=== PATIENT | female | born 1950 | race Caucasian/White ===

== ENCOUNTER 2017-04-09 07:05 | Emergency (ER) | payer MEDICARE ==
[2017-04-09 07:16] VITALS: BP 170/79
--- NOTE | 2017-04-09 07:42 | UC ---
Skin Complaint HPI - HPI Summary HPI Summary: FOUND A TICK RIGHT MEDIAL THIGH THIS MORNING. TRIED TO REMOVE IT WITH TWEEZERS BUT PART OF IT BROKE OFF. NOT SURE HOW LONG IT WAS ATTACHED. GOES INTO THE [place] DAILY. - History of Current Complaint Chief Complaint: [facility]CS[facility] Time Seen by Provider: 04/09/17 07:11 Stated Complaint: TICK BITE Hx Obtained From: Patient Timing: Constant Onset Severity: Mild Current Severity: Mild Pain Intensity: 0 Pain Scale Used: 0-10 Numeric Location: Discrete - RIGHT MEDIAL THIGH Character: Redness Aggravating: Nothing Alleviating: Nothing Associated Signs & Symptoms: Positive: Negative Related History: Insect Bite/Sting - Allergy/Home Medications Allergies/Adverse Reactions: Allergies Allergy/AdvReac Type Severity Reaction Status Date / Time No Known Allergies Allergy Verified 04/09/17 07:16 Review of Systems Constitutional: Negative Skin: Other - TICK BITE Respiratory: Negative Cardiovascular: Negative Gastrointestinal: Negative All Other Systems Reviewed And Are Negative: Yes PMH/Surg Hx/FS Hx/Imm Hx Endocrine History Of: Denies: Diabetes, Thyroid Disease Cardiovascular History Of: Denies: Cardiac Disorders, Hypertension, Pacemaker/ICD Respiratory History Of: Denies: COPD, Asthma GI/ History Of: Denies: Ulcer, Renal Disease Neurological History Of: Reports: Migraine Cancer History Of: Denies: Breast Cancer - Surgical History Surgical History: None - Family History Known Family History: Negative: Hypertension - Social History Alcohol Use: Rare Substance Use Type: None Smoking Status (MU): Never Smoked Tobacco Physical Exam Triage Information Reviewed: Yes Appearance: Well-Appearing, No Pain Distress, Well-Nourished Vital Signs: Initial Vital Signs Temp 97.8 F 04/09/17 07:13 Pulse 89 04/09/17 07:13 Resp 16 04/09/17 07:13 BP 170/79 04/09/17 07:13 Pulse Ox 99 04/09/17 07:13 Vital Signs Reviewed: Yes Eyes: Positive: Conjunctiva Clear ENT: Positive: Hearing grossly normal Neck: Positive: Supple Respiratory: Positive: No respiratory distress, No accessory muscle use Cardiovascular: Positive: Pulses Normal Abdomen Description: Positive: Soft Musculoskeletal: Positive: No Edema Neurological: Positive: Alert Psychological: Positive: Age Appropriate Behavior Skin: Positive: Other - TICK BITE SITE RIGHT MEDIAL THIGH WITH SURROUNDING ERYTHEMA AND RETAINED TICK PART. Course/Dx - Course Course Of Treatment: TICK PART REMOVED SUCCESSFULLY WITH 18 GAUGE NEEDLE. PT TO FOLLOW-UP BP WITH PCP. - Diagnoses Provider Diagnoses: 1. TICK BITE. 2. LYME PROPHYLAXIS Discharge - Discharge Plan Condition: Stable Disposition: HOME Prescriptions: Doxycycline (Monohydrate) [Doxycycline Monohydrate] 2 cap PO ONCE #2 cap Patient Education Materials: Tick Bite (ED) Referrals: Gina Garland MD [Primary Care Provider] - If Needed Additional Instructions: TICK BITE PROPHYLAXIS The Infectious Disease Society of [place] (IDSA) does not generally recommend antimicrobial prophylaxis for prevention of Lyme disease after a recognized tick bite. However, in areas that are highly endemic for Lyme disease, a single dose of doxycycline may be offered to adult patients (200 mg) who are not and to children older than 8 years of age (4 mg/kg up to a maximum dose of 200 mg) when all of the following circumstances exist: CRITERIA FOR RECEIVING PROPHYLACTIC TREATMENT FOR LYME DISEASE 1) TICK ATTACHED FOR AT LEAST 36 HRS 2) TICK IS AN ADULT OR [place] DEER TICK 3) YOU LIVE IN AN AREA WHERE LYME DISEASE IS PREVALENT (i.e., [place], [place], [place], , [place] , [place], [place], [place], [place], [place], [place], [place], [place], [place]) 4) YOU HAVE NO CONTRAINDICATION TO THE MEDICATION (DOXYCYCLINE) 5) PROPHYLAXIS IS BEGUN WITHIN 72 HRS OF TICK REMOVAL BE VIGILANT OF YOUR SYMPTOMS AND DON'T HESITATE TO GET SEEN AGAIN IF YOU DEVELOP UNEXPLAINED FEVER, HEADACHE, JOINT PAIN, BODY ACHES, RASH OR ANY OTHER CONCERNING SYMPTOMS. Antibiotic treatment following a tick bite is not recommended as a means to prevent anaplasmosis, babesiosis, ehrlichiosis, or [place] spotted fever. There is no evidence this practice is effective, and it may simply delay onset of disease. Instead, persons who experience a tick bite should be alert for symptoms suggestive of tickborne illness and consult a physician if fever, rash, or other symptoms of concern develop.
== END 2017-04-09 07:36 | disposition home or self-care (01) ==
LOC: UCEAST 07:05
DX: S70.361A Insect bite (nonvenomous), right thigh, initial encounter (principal); G43.909 Migraine, unspecified, not intractable, without status migrainosus; W57.XXXA Bitten or stung by nonvenomous insect and other nonvenomous arthropods, initial encounter
CPT/HCPCS: 99212; G0463